=== PATIENT | female | born 1975 | race African-American/Black ===

== ENCOUNTER 2016-08-22 11:50 | Emergency (ER) | payer SELFPAY ==
[2016-08-22] MEDS ORDERED: Diazepam TAB(*) 5 MG PO ONE (13:51)
[2016-08-22] MEDS ORDERED: Ketorolac INJ* 60 MG/2 ML VIAL IM ONE (13:51)
--- NOTE | 2016-08-22 13:51 | ED ---
Back Pain - HPI Summary HPI Summary: LBP x 5 days shooting into Rt buttock - pain w/ weight bearing - no weakness. Denies change in bowel/bladder habits. Started when she transitioned from a sitting to standing position after sitting for 1 hour. Worse w/ coughing. Best position is lying flying and applying ice. Has tried ibuprofen w/o much relief. No h/o back injuries, trauma. Denies fever, chills, n/v/d, dysuria, flank pain, vaginal sx. Works at her own daycare - lifting, bending, etc. Hasn't been able to do this since pain started. - History of Current Complaint Chief Complaint: EDGeneral Stated Complaint: BACK PAIN Time Seen by Provider: 08/22/16 13:33 Hx Obtained From: Patient Pain Intensity: 8 - Allergies/Home Medications Allergies/Adverse Reactions: Allergies Allergy/AdvReac Type Severity Reaction Status Date / Time Cyclobenzaprine Allergy Vomiting Verified 02/08/16 14:01 [From Flexeril] PMH/Surg Hx/FS Hx/Imm Hx Previously Healthy: Yes Endocrine/Hematology History: Reports: Hx Diabetes - gestational - resolved Denies: Hx Anticoagulant Therapy, Hx Blood Disorders Cardiovascular History: Denies: Hx Aneurysm, Hx Hypertension GI History: Denies: Hx Crohn's Disease, Hx Diverticulosis, Hx Gall Bladder Disease, Hx Gastroesophageal Reflux Disease, Hx Hiatal Hernia, Hx Irritable Bowel History: Denies: Hx Acute Renal Failure, Hx Chronic Renal Failure, Hx Kidney Infection , Hx Kidney Stones Musculoskeletal History: Denies: Hx Arthritis, Hx Back Problems Infectious Disease History: No Infectious Disease History: Denies: Traveled Outside the [place] in Last 30 Days - Family History Known Family History: Positive: Diabetes - Social History Occupation: Employed Full-time - daycare Lives: With Family Alcohol Use: Occasionally Hx Substance Use: No Substance Use Type: Reports: None Smoking Status (MU): Former Smoker Type: Cigarettes Amount Used/How Often: quit in October 2015 Have You Smoked in the Last Year: Yes Review of Systems Constitutional: Negative ENT: Negative Negative: Palpitations, Chest Pain Negative: Shortness Of Breath, Cough Negative: Abdominal Pain, Vomiting, Diarrhea, Nausea Genitourinary: Negative Positive: see HPI Musculoskeletal: Other - see HPI Negative: Rash, Bruising Neurological: Negative Psychological: Normal All Other Systems Reviewed And Are Negative: Yes Physical Exam Triage Information Reviewed: Yes Vital Signs On Initial Exam: Initial Vitals Temp Pulse Resp BP Pulse Ox 98.2 F 85 20 119/77 100 08/22/16 11:52 08/22/16 11:52 08/22/16 11:52 08/22/16 11:52 08/22/16 11:52 Vital Signs Reviewed: Yes Appearance: Positive: Well-Appearing, No Pain Distress - lying in flexed supine position on stretcher, Well-Nourished Skin: Positive: Warm, Dry - no erythema, no ecchymosis, no lesions overlying affected area Head/Face: Positive: Normal Head/Face Inspection Eyes: Positive: Normal, EOMI ENT: Positive: Hearing grossly normal, Pharynx normal - mucosa moist Neck: Positive: Supple Respiratory/Lung Sounds: Positive: Clear to Auscultation, Breath Sounds Present Cardiovascular: Positive: Normal, RRR, Pulses are Symmetrical in both Upper and Lower Extremities. Negative: Leg Edema Left, Leg Edema Right Abdomen Description: Positive: Nontender, Soft Bowel Sounds: Positive: Present Musculoskeletal: Positive: Strength/ROM Intact - LE's w/ FROM - pain w/ SLR past 90 degrees; spinous pp NTTP Neurological: Positive: Normal, Sensory/Motor Intact, Alert, Oriented to Person Place, Time, CN Intact II-III Psychiatric: Positive: Normal Diagnostics - Vital Signs Vital Signs Temp Pulse Resp BP Pulse Ox 08/22/16 12:24 98.3 F 75 16 114/74 100 08/22/16 11:52 98.2 F 85 20 119/77 100 - Laboratory Lab Statement: Any lab studies that have been ordered have been reviewed, and results considered in the medical decision making process. Re-Evaluation - Re-Evaluation First Eval Change: Improved Back Pain Course/Dx - Course Course Of Treatment: Pt presents w/ acute LBP w/ radiculopathy w/o weakness, paresthesia, change in bowel/bladder habits - XR's reveal mild DDD and she improved w/ anti-inflammatory + muscle relaxer. D/c'd home w/ meds and f/u care plan. Reviewed danger s/sx of when to return to ED. Pt and family voice understanding. - Diagnoses Provider Diagnoses: Acute lumbar radiculopathy Discharge - Discharge Plan Condition: Stable Disposition: HOME Prescriptions: Diazepam TAB(*) [Valium TAB(*)] 5 mg PO TID PRN #[id number] tab MDD 3 PRN Reason: Pain Patient Education Materials: Acute Low Back Pain (ED), Degenerative Disc Disease (ED) Referrals: [facility] [Outside] Additional Instructions: Rest Ice alternating with heat Topical pain creams or patches (ie. Salonpas, Benagy, Biofreeze, etc) Continue NSAID's at home - ibuprofen 600mg every 6 hours with food OR aleve 500mg every 12 hours May take acetaminophen 650mg every 6 hours in addition to these meds for breakthrough pain control Take valium before sleeping as this may cause drowsiness Follow-up with PCP this week - a referral contact number has been provided for you here. Call tomorrow to schedule an appointment. *If you develop numbness, weakness, incontinence of bowels/bladder return to ED
--- NOTE | 2016-08-22 14:27 | RAD ---
HISTORY: Lumbar radiculopathy COMPARISONS: None VIEWS: 5 , Frontal, lateral, coned-down lateral sacral, and bilateral oblique views of the lumbar spine. FINDINGS: ALIGNMENT: The alignment is normal. VERTEBRAL BODIES: The vertebral body heights are normal. The interpedicular distances are normal. JOINTS: There is minimal facet osteoarthritic change at L4-L5 and L5-S1 INTERVERTEBRAL DISCS: There is mild loss of intervertebral disc height. SOFT TISSUE: Unremarkable. OTHER: The pelvis is unremarkable. The lung bases are clear. IMPRESSION: MILD DEGENERATIVE CHANGES.
[2016-08-22 16:00] VITALS: BP 130/84
== END 2016-08-22 15:59 | disposition home or self-care (01) ==
LOC: ED 11:50
DX: M54.16 Radiculopathy, lumbar region (principal); M47.9 Spondylosis, unspecified
CPT/HCPCS: 72110; 96372; 99282; A9270-GY; J1885